=== PATIENT | female | born 1965 | race Caucasian/White ===

== ENCOUNTER → 2017-02-24 | Outpatient (CLI) | payer OTHER ==
[2017-02-24 13:27] VITALS: BP 138/80; PULSE 81; TEMP 98.1; BMI 52.3
--- NOTE | 2017-03-03 08:45 | P.PN ---
Subjective Principal diagnosis: Morbid obesity BMI 52.4 failure to loose more weight Patient is s/p sleeve gastrectomy . She had the sleeve gastrectomy on 2012 . She started at a weight of 423.2 lb and was down to 285 lbs on 03/22/14 . SHe is currently back to 304.36 lbs. She has had nutrional councilling as well. SHe has lost greater than 50 % of her excess body weight but ios not happy where she is. SHe is eating well and is active and trying to train for [employer]. Objective - Vital Signs Vital signs: Vital Signs Temp 98.1 F 02/24/17 13:22 Pulse 81 02/24/17 13:22 Resp BP 138/80 02/24/17 13:22 Pulse Ox - Constitutional General appearance: Present: morbidly obese - EENT Eyes: Present: PERRLA - Cardiovascular Rhythm: regular - Gastrointestinal General gastrointestinal: Present: soft - Integumentary Integumentary: Absent: calor, cellulitis, cyanotic, decreased turgor, flushed, jaundiced, normal, normal turgor, pale, rash, ulcer - Neurologic Neurologic: Present: CNII-XII intact. Absent: focal deficits - Psychiatric Psychiatric: Present: A&O x's 3, appropriate affect, intact judgment & insight Assessment and Plan (1) Hypertension Status: Acute (2) Morbid obesity Status: Chronic Plan: PAtient has done a decent job with her sleeve and still wants more weight loss. I have discussed the possibility of gastric bypass or dudodenal switch. she will have to go through insurance for it. . She will also see Dr Montoya for a second opinion. SHe also saw Dr Wiley in September 2016. She is to follow up as recommended.
== END ==
LOC: BARWHC3 12:43
PROVIDERS: ATTEND Surgery
DX: E66.01 Morbid (severe) obesity due to excess calories (principal); I10 Essential (primary) hypertension; Z98.84 Bariatric surgery status
CPT/HCPCS: 99211

== ENCOUNTER → 2017-03-30 | Outpatient (CLI) | payer OTHER ==
[2017-03-30 10:48] VITALS: BMI 51.0
== END | disposition home or self-care (01) ==
LOC: MNTWWP 09:12
PROVIDERS: ATTEND Surgery
DX: E66.01 Morbid (severe) obesity due to excess calories (principal)
CPT/HCPCS: 97802

== ENCOUNTER → 2017-04-27 | Outpatient (CLI) | payer OTHER ==
[2017-04-27 09:56] VITALS: BP 114/77; PULSE 76; RESP 16; TEMP 98; BMI 52.7
--- NOTE | 2017-04-27 15:50 | P.GSHP ---
History of Present Illness H&P Date: 04/27/17 Chief Complaint: Weight regain after sleeve gastrectomy Patient is s/p sleeve gastrectomy by Dr. Alcantara on 04/11/2013 . She started at a weight of 423.2 lb and was down to 285 lbs on 03/22/14 . She has progressive weight gain , feels hungry and new onset of sleeping problems. She is just started on Contrave . She has been seeing Dr. Medina and presents today to [facility] about revisional bariatric sx - Review of Systems Comment: Constitutional: Denies fever, weight loss or loss of appetite HEENT: No difficulty in vision or hearing. Denies dysphagia. Cardiovascular: Denies chest pain, palpitations, dizziness, shortness of breath. Respiratory: Recent upper respiratory tract infection with dry cough. Long- standing asthma well controlled with rescue inhalers. Gastrointestinal: No recent change in bowel habits, no abdominal pain, no nausea or vomiting. Denies reflux symptoms and no postprandial right upper quadrant pain. Genitourinary: No urinary incontinence, hematuria or dysuria Neurologic: No seizures, denies weakness in upper or lower extremities Musculoskeletal: Occasional left knee pain. Psychiatry: Known history of depression, no suicidal ideation, no anxiety or psychosis Past Medical History Past Medical History: Asthma, Hypertension, Thyroid Disorder Additional Past Medical History / Comment(s): migraines, painful/heavy menses History of Any Multi-Drug Resistant Organisms: None Reported Past Surgical History: Bariatric Surgery, Tonsillectomy Additional Past Surgical History / Comment(s): D&C x2, sleeve 04/11/13, sinus/ tonsils/adenoids at same time Past Anesthesia/Blood Transfusion Reactions: Postoperative Nausea & Vomiting ( PONV) Past Psychological History: Anxiety, Depression Smoking Status: Never smoker - Past Family History Mother Family Medical History: Cancer, Hypertension Additional Family Medical History / Comment(s): BREAST CA Father Additional Family Medical History / Comment(s): HX MS- HEART PROBLEMS- Medications and Allergies Home Medications Medication Instructions Recorded Confirmed Type Citalopram Hydrobromide [CeleXA] 10 mg PO DAILY 03/20/14 04/27/17 History Loratadine [Claritin] 10 mg PO DAILY 03/20/14 04/27/17 History Montelukast [Singulair] 10 mg PO DAILY 03/20/14 04/27/17 History amLODIPine BESYLATE [Norvasc] 2.5 mg PO DAILY 03/20/14 04/27/17 History buPROPion [Wellbutrin] 75 mg PO DAILY 03/20/14 04/27/17 History Triamterene-Hctz 37.5-25Mg 1 each PO DAILY 03/22/14 04/27/17 History [Dyazide 37.5-25 Capsule] Levothyroxine Sodium [Synthroid] 100 mcg PO DAILY 05/13/16 04/27/17 History Fluticasone Nasal [place] [Flonase 2 spr EA NOSTRIL DAILY PRN 07/01/16 04/27/17 History Nasal [place]] Naltrexone HCl/Bupropion HCl 1 each PO DAILY 04/27/17 04/27/17 History [Contrave ER 8-90 mg Tablet] Allergies Allergy/AdvReac Type Severity Reaction Status Date / Time No Known Allergies Allergy Unverified 04/27/17 11:37 Surgical - Exam Vital Signs Temp Pulse Resp BP 98.0 F 76 16 114/77 04/27/17 09:53 04/27/17 09:53 04/27/17 09:53 04/27/17 09:53 General: Patient is alert and oriented to time, place and person and cooperative with exam. He is not in acute distress. HEENT: No pallor, no icterus, no thyroid enlargement, no cervical lymphadenopathy. Chest: Bilateral equal breath sounds present. No wheezes, no crackles. Cardiovascular: Regular rate and rhythm. Abdomen: Soft, nontender, nondistended. No right upper quadrant tenderness. Petersen sign negative. Well-healed surgical scars located at the umbilicus and both groins. Integumentary: Bilateral lower extremity chronic venous dermatitis. No active ulcers or discharge. Neurologic: Cranial nerves II-XII intact. Strength upper and lower extremities 5/5. No focal neurologic deficits. Gait is normal. Psychiatric: No anxiety or psychosis. No suicidal thoughts. Assessment and Plan (1) Hypertension Status: Acute (2) Morbid obesity Status: Chronic Plan: 1. Excessive snoring and sleep problems- Sleep study 2. Daily chewable MVI 3. Check CBC, CMP , mineral and vitamin levels 4. Maintain food and actvity diary. 5. Follow up visit in 1 month with enrollment coordinator 6. She has no complications from sleeve gastrectomy. She has increased hunger and cravings . Patient was reassured. Do not recommned conversion to bypass at this time. She needs supervised weight loss with diet and exercise. 7. Started on Contrave by PCP 8. Known depression. Consult pyschologist regarding depression and stress management and poor eating habits
== END | disposition home or self-care (01) ==
LOC: BARWHC3 09:41
PROVIDERS: ATTEND Surgery
DX: E66.01 Morbid (severe) obesity due to excess calories (principal); I10 Essential (primary) hypertension; F41.9 Anxiety disorder, unspecified; F32.9 Major depressive disorder, single episode, unspecified; J45.909 Unspecified asthma, uncomplicated; Z79.899 Other long term (current) drug therapy; Z98.84 Bariatric surgery status
CPT/HCPCS: 97803; 99211

== ENCOUNTER → 2017-04-27 | Outpatient (CLI) | payer OTHER ==
[2017-04-27 14:23] VITALS: BMI 52.7
== END | disposition home or self-care (01) ==
LOC: MNTWWP 09:48
PROVIDERS: ATTEND Surgery
DX: E66.01 Morbid (severe) obesity due to excess calories (principal)
CPT/HCPCS: 97803

== ENCOUNTER → 2021-02-11 | Outpatient (CLI) | payer MEDICAID ==
--- NOTE | 2021-02-11 12:43 | FL ---
EXAMINATION TYPE: NV UGI DATE OF EXAM: 02/11/2021 COMPARISON: NONE HISTORY: Dysphasia TECHNIQUE: A single contrast UGI study is performed. FINDINGS: [employer] image of the abdomen shows no gross abnormality. The esophagus shows normal motility and emptying into the stomach. No evidence of hiatal hernia or s tricture noted. The stomach shows normal distensibility, peristalsis, and mucosal folds. No evidence of any mass or ulcer disease. No gastroesophageal reflux. Numerous tertiary contractions of esophagus. The duodenal bulb, sweep, and proximal small bowel loops are unremarkable. IMPRESSION: 1. Tertiary contractions of esophagus correlate for dysmotility.
== END | disposition home or self-care (01) ==
LOC: RADUSWWP 09:56
PROVIDERS: ATTEND Surgery
DX: R13.10 Dysphagia, unspecified (principal)
CPT/HCPCS: 74240

== ENCOUNTER → 2021-10-11 | Outpatient (CLI) | payer MEDICAID ==
--- NOTE | 2021-10-11 09:58 | CT ---
EXAMINATION TYPE: CT heart w calcium score DATE OF EXAM: 10/11/2021 COMPARISON: None HISTORY: Screening for cardiovascular disorder. 213.9 CT DLP: 290 mGycm Automated exposure control for dose reduction was used. CT CALCIUM SCORING Coronary calcium is a marker for plaque (fatty deposits) in a blood vessel or atherosclerosis (harden ing of the arteries). The presence and amount of calcium detected in a coronary artery by the CT sca n, indicates the presence and amount of atherosclerotic plaque. These calcium deposits appear years before the development of heart disease symptoms such as chest pain and shortness of breath. A calcium score is computed for each of the coronary arteries based upon the volume and density of th e calcium deposits. This can be referred to as your calcified plaque burden. It does not correspond directly to the percentage of narrowing in the artery but does correlate with the severity of the un derlying coronary atherosclerosis. PROCEDURE TECHNIQUE - Prospective Gating was used. Slice thickness: 3mm. Density threshold (HU): 130, Pixel threshold: 3, Algorithm: discrete. RESULTS Region: LM Calcium Score ([place]): 0 Volume (mm3): 0 Mass (g): 0 Region: RCA Calcium Score ([place]): 0 Volume (mm3): 0 Mass (g): 0 Region: LAD Calcium Score ([place]): 0 Volume (mm3): 0 Mass (g): 0 Region: CX Calcium Score ([place]): 0 Volume (mm3): 0 Mass (g): 0 Region: PDA Calcium Score ([place]): 0 Volume (mm3): 0 Mass (g): 0 Total: Calcium Score ([place]): 0 Volume (mm3): 0 Mass (g): 0 TOTAL CALCIUM SCORE: 0 IMPRESSION: Calcium Score: 0 Implication: No identifiable plaque. Risk of Coronary Artery Disease: Very low generally less than 5% CALCIUM SCORE IMPLICATION RISK OF C ORONARY ARTERY DISEASE 0 No identifiable plaque Very low, generally less than 5% 1-10 Minimal identifiable plaque Very unlikely, less than 10% 11-100 Definite, at least mild atherosclerotic plaque Mild or m inimal coronary narrowings likely 101-400 Definite, at least moderate atherosclerotic plaque Mild coronary ar lo disease highly likely, significant narrowing possible 401 or Higher Extensive atherosclerotic plaque High lik elihood of at least one significant coronary narrowing
== END | disposition home or self-care (01) ==
LOC: RADCTMAIN 09:10
PROVIDERS: ATTEND Family Medicine
DX: Z13.6 Encounter for screening for cardiovascular disorders (principal)
CPT/HCPCS: 75571

== ENCOUNTER 2022-05-28 16:10 | Emergency (ER) | payer MEDICAID ==
[2022-05-28 16:16] VITALS: TEMP 97.8
--- NOTE | 2022-05-28 16:52 | ED ---
Fall HPI - General Chief Complaint: Fall Stated Complaint: fall Time Seen by Provider: 05/28/22 16:22 Source: patient, family, RN notes reviewed Mode of arrival: wheelchair - History of Present Illness Initial Comments: This is a 57-year-old female who presents to the emergency department for a fall. Patient states that she was walking around [place] earlier today, when she fell face forward onto the cement. She hit her head, her knees, and twisted her right ankle. Currently states that most of the pain is in her head and right ankle. Also notes swelling to the right ankle and difficulty bearing weight. She does not believe that she lost consciousness, but states that she is unsure. Believes that she tripped, but is also not quite sure. Denies any fevers, chills, sore throat, cough, dyspnea, chest pain, palpitations, abdominal pain, nausea, vomiting, diarrhea, or back pain. MD Complaint: fall Fall From: standing Fall Witnessed: yes, by bystander Place Fall Occurred: street Loss of Consciousness: unsure Prolonged Down Time?: unclear Symptoms Prior to Fall: none Location: head Location - Extremities: Left: Knee, Right: Knee, Ankle Context: tripped/slipped - Related Data Home Medications Medication Instructions Recorded Confirmed Citalopram Hydrobromide [CeleXA] 10 mg PO DAILY 03/20/14 04/27/17 Loratadine [Claritin] 10 mg PO DAILY 03/20/14 04/27/17 Montelukast [Singulair] 10 mg PO DAILY 03/20/14 04/27/17 amLODIPine BESYLATE [Norvasc] 2.5 mg PO DAILY 03/20/14 04/27/17 buPROPion [Wellbutrin] 75 mg PO DAILY 03/20/14 04/27/17 Triamterene-Hctz 37.5-25Mg 1 each PO DAILY 03/22/14 04/27/17 [Dyazide 37.5-25 Capsule] Levothyroxine Sodium [Synthroid] 100 mcg PO DAILY 05/13/16 04/27/17 Fluticasone Nasal [place] [Flonase 2 spr EA NOSTRIL DAILY PRN 07/01/16 04/27/17 Nasal [place]] Naltrexone HCl/Bupropion HCl 1 each PO DAILY 07/17/17 07/17/17 [Contrave ER 8-90 mg Tablet] Allergies Allergy/AdvReac Type Severity Reaction Status Date / Time No Known Allergies Allergy Verified 05/28/22 16:13 Review of Systems ROS Statement: Those systems with pertinent positive or pertinent negative responses have been documented in the HPI. ROS Other: All systems not noted in ROS Statement are negative. Past Medical History Past Medical History: Asthma, Hypertension, Thyroid Disorder Additional Past Medical History / Comment(s): migraines, painful/heavy menses History of Any Multi-Drug Resistant Organisms: None Reported Past Surgical History: Bariatric Surgery, Tonsillectomy Additional Past Surgical History / Comment(s): D&C x2, sleeve 04/11/13, sinus/tonsils/adenoids at same time Past Anesthesia/Blood Transfusion Reactions: Postoperative Nausea & Vomiting (PONV) Past Psychological History: Anxiety, Depression Smoking Status: Never smoker Past Alcohol Use History: Rare Past Drug Use History: None Reported - Past Family History Mother Family Medical History: Cancer, Hypertension Additional Family Medical History / Comment(s): BREAST CA Father Additional Family Medical History / Comment(s): HX MS- HEART PROBLEMS- General Exam Limitations: no limitations General appearance: alert, in no apparent distress Head exam: Present: atraumatic, normocephalic, normal inspection Respiratory exam: Present: normal lung sounds bilaterally. Absent: respiratory distress, wheezes, rales, rhonchi, stridor Cardiovascular Exam: Present: regular rate, normal rhythm, normal heart sounds. Absent: systolic murmur, diastolic murmur, rubs, gallop, clicks Extremities exam: Present: other (Diffuse swelling of the right ankle. Limited ROM secondary to pain. ) Neurological exam: Present: alert, oriented X3, CN II-XII intact Psychiatric exam: Present: normal affect, normal mood Skin exam: Present: abrasion (left side of the forehead) Course Vital Signs 05/28/22 05/28/22 16:13 18:52 Temperature 97.8 F Pulse Rate 90 71 Respiratory 18 16 Rate Blood Pressure 121/78 132/90 O2 Sat by Pulse 96 95 Oximetry Medical Decision Making - Medical Decision Making This is a 57-year-old female who presents to the emergency department for a fall. Computed tomography scan of the brain and x-ray of the knees and right ankle revealed no acute irregularities. Discussed with the patient that she lik hilary just sprained her ankle. She was given an ankle stirrup splint and a postop shoe. She was also given crutches and a knee immobilizer to use if needed. Advised applying ice to the areas of pain for the first 2-3 days followed by heat there afterwards. If symptoms do not improve over the next 1-2 weeks, she may need a repeat x-ray in the event the swelling has hidden any fractures. Instructed her to alternate with Tylenol and ibuprofen as needed for pain relief. Return precautions reviewed in depth, the patient is instructed to return to the emergency department with any new, worsening, or concerning symptoms. Patient verbalized understanding. This case was discussed in detail with the attending ED physician. Presentation, findings, and treatment plan discussed in detail as well. - Radiology Data Radiology results: report reviewed, image reviewed Disposition Clinical Impression: Fall, Right ankle sprain Disposition: HOME SELF-CARE Instructions (If sedation given, give patient instructions): Ankle Sprain (ED), Crutch Instructions (ED), Ankle Stirrup Splint (ED) Additional Instructions: Return to the emergency department with any new, worsening, or concerning symptoms. Alternate with ibuprofen and Tylenol as needed for pain relief. Use the air stirrup splint, postop shoe, and crutches as needed. Ice the areas of pain for the first 2-3 days followed by heat there afterwards. If symptoms do not get any better in the next 1-2 weeks, you may need repeat x-rays for reevaluation. Is patient prescribed a controlled substance at d/c from ED?: No Referrals: Rubio Pinon MD [Primary Care Provider] - 1-2 days
--- NOTE | 2022-05-28 17:25 | CT ---
EXAMINATION TYPE: CT brain wo con DATE OF EXAM: 05/28/2022 COMPARISON: None HISTORY: fall, hit head CT DLP: 1190.4 mGycm Automated exposure control for dose reduction was used. Ventricles and sulci appear normal. There is no mass effect or midline shift. No sign of intracranial hemorrhage. The calvarium is intact. There is normal aeration of the mastoid sinuses. IMPRESSION: Negative unenhanced head CT scan.
--- NOTE | 2022-05-28 18:08 | XR ---
EXAMINATION TYPE: XR knee complete bilateral DATE OF EXAM: 05/28/2022 COMPARISON: NONE HISTORY: Fall. Pain TECHNIQUE: 3 views each knee FINDINGS: There is hypertrophic spurring of the femoral and tibial condyles bilaterally. There is caitlyn ateral medial joint space narrowing that appears more severe in the left knee. There is narrowing of the patellofemoral joint spaces with spur formation. No fracture. There is some lateral left and righ t tibial subluxation. IMPRESSION: Moderate hypertrophic osteoarthritis. No fracture.
--- NOTE | 2022-05-28 18:10 | XR ---
EXAMINATION TYPE: XR ankle complete RT DATE OF EXAM: 05/28/2022 COMPARISON: NONE HISTORY: Fall. Pain TECHNIQUE: 3 views FINDINGS: Ankle mortise is anatomic. There is plantar calcaneal spurring. I see no fracture nor dislo cation. IMPRESSION: Calcaneal spurring. No fracture seen
[2022-05-28 18:54] VITALS: BP 132/90; PULSE 71; RESP 16
== END 2022-05-28 18:53 | disposition home or self-care (01) ==
LOC: EC 16:10
DX: S93.401A Sprain of unspecified ligament of right ankle, initial encounter (principal); J45.909 Unspecified asthma, uncomplicated; I10 Essential (primary) hypertension; E07.9 Disorder of thyroid, unspecified; F41.9 Anxiety disorder, unspecified; F32.A Depression, unspecified; Z79.899 Other long term (current) drug therapy; Z79.51 Long term (current) use of inhaled steroids; W01.198A Fall on same level from slipping, tripping and stumbling with subsequent striking against other object, initial encounter
CPT/HCPCS: 70450; 99284

== ENCOUNTER → 2023-04-03 | Outpatient (CLI) | payer BC ==
--- NOTE | 2023-04-05 12:37 | MR ---
EXAMINATION TYPE: MR lumbar spine wo con DATE OF EXAM: 04/03/2023 4:19 PM COMPARISON: None. CLINICAL INDICATION: Female, 58 years old with history of M47.26 Lumbar spondylosis with radiculopath y; Lumbar spondylosis with radiculopathy, pain into thighs TECHNIQUE: Multi planar, multi sequence imaging was performed utilizing: T1-weighted, T2-weighted, a nd turbo inversion recovery imaging of the lumbar spine. IV Contrast: None. FINDINGS: Alignment: The lumbar vertebral bodies have preserved heights and alignment. There is increased kyph osis of the thoracic spine. Cord: The conus medullaris and the distal spinal cord appear unremarkable with regards to their signa l intensity and morphology. Bones/Discs: Scattered Modic endplate changes are seen throughout the spine. Mild inversion recovery bony edema at the superior posterior endplate of L3. Multilevel disc desiccation is present. Scattere d osteophyte formation disc space narrowing and facet arthropathy is present. T12-L1: No evidence of significant spinal canal stenosis or neural foraminal stenosis. L1-L2: No evidence of significant spinal canal stenosis. Facet joint arthropathy moderate to severe r ight and moderate left neural foraminal stenosis. L2-L3: Right central/central disc extrusion with inferior migration of disc material up to 14 mm whic h abuts the forming nerves at this level. Series 601 image 16. There is mild spinal canal stenosis at this level there is severe right neural foraminal stenosis and [id number] left. L3-L4: Disc bulge with superimposed central disc protrusion with mild to moderate spinal canal stenos is. There is moderate to severe right and moderate left neural foraminal stenosis. Facet arthropathy is present at this level. L4-L5: Disc bulge and facet joint arthropathy result in mild spinal canal and mild bilateral neural f oraminal stenosis. L5-S1: No evidence of significant spinal canal stenosis. Facet joint arthropathy mild bilateral neura l foraminal stenosis. No significant spinal canal or neural foraminal stenosis in the remainder of the visualized levels. Other findings: None. IMPRESSION: 1. L3-L4 disc bulge with superimposed central disc protrusion with mild to moderate spinal canal jimbo nosis there is moderate to severe right neural foraminal stenosis at this level. 2. L2-L3 right central disc herniation which abuts the forming nerve root at this level on the right . There is severe right neural foraminal stenosis at this level.
== END | disposition home or self-care (01) ==
LOC: RADMRIMAIN 15:30
PROVIDERS: ATTEND Nurse Practitioner Family
DX: M51.16 Intervertebral disc disorders with radiculopathy, lumbar region (principal); M47.26 Other spondylosis with radiculopathy, lumbar region; M48.061 Spinal stenosis, lumbar region without neurogenic claudication
CPT/HCPCS: 72148